=== PATIENT | male | born 1975 | race Caucasian/White ===

== ENCOUNTER 2017-05-16 20:16 | Emergency (ER) | payer OTHER ==
[~2017-05-16] VITALS: Ht 180.3 cm; Wt 101.1 kg
[~2017-05-16 20:16] MED LIST: NAPROXEN500 MG PO
[2017-05-16 20:49] LABS: HEMATOCRIT 49.6 % (38.0-50.0); MCH 28.2 PG (29.0-34.0); MCHC 33.7 G/DL (30.0-36.0); MCV 83.6 FL (86-99); MEAN PLAT.VOLUME 9.6 uM^3 (9.0-12.4); PLATELET COUNT 255 K/uL (156-360); RBC DIS.WIDTH-CV 12.3 % (11.8-14.6); RBC DIS.WIDTH-SD 37.4 % (39-53); RED BLOOD COUNT 5.93 M/uL (4.00-5.50); WHITE BLOOD COUNT 11.4 K/uL (4.1-10.2)
[2017-05-16 21:01] LABS: CHLORIDE 104 mEq/L (99-109); POTASSIUM 4.5 mEq/L (3.7-5.4); SODIUM 139 mEq/L (136-147)
[2017-05-16 21:03] LABS: GLUCOSE 134 mg/dL (70-99)
[2017-05-16 21:04] LABS: ANION GAP 15 MEQ/L (2-14)
[2017-05-16 21:07] LABS: GFR ESTIMATE (CALCULATED) > 59 mL/min/
[2017-05-16 21:08] LABS: UREA NITROGEN (BUN) 19 mg/dL (9-23)
[2017-05-16 22:53] LABS: ADD MIUA? YES; BILIRUBIN NEGATIVE; BLOOD MODERATE; COLOR YELLOW ((YELLOW)); GLUCOSE (STRIP) NEGATIVE; KETONES NEGATIVE; LEUKOCYTES NEGATIVE; NITRITE NEGATIVE; PROTEIN (STRIP) 30; SPECIFIC GRAVITY 1.024 (1.000-1.030); UROBILINOGEN 0.2 MG/DL (0.2-1.0)
[2017-05-16 22:59] LABS: BACTERIA NONE SEEN /HPF; EPITHELIAL CELLS NONE SEEN /HPF; MUCUS TRACE /LPF; RED BLOOD CELLS TNTC /HPF (0-5); WHITE BLOOD CELLS 0-5 /HPF (0-5)
[2017-05-16] MEDS ORDERED: PERCOCET 5/31 TABLET PO (23:03)
[2017-05-16] MEDS ORDERED: MOTRIN800 MG PO (23:03)
[2017-05-16] MEDS ORDERED: ZOFRAN ODT4 MG PO (23:03)
[2017-05-16] MEDS ORDERED: FLOMAX0.4 MG PO (23:03)
[2017-05-16] MEDS ORDERED: STOOL SOFTENER250 MG PO (23:04)
[2017-05-16 23:47] VITALS: BP 142/87
== END 2017-05-16 23:51 | disposition home or self-care (01) ==
LOC: EME 20:16
PROVIDERS: Nurse Practitioner Family
DX: N13.2 Hydronephrosis with renal and ureteral calculous obstruction (principal); I10 Essential (primary) hypertension; Z87.442 Personal history of urinary calculi
CPT/HCPCS: 74176; 80048; 81003; 85027; 99281; 99285; J1885; J3010; J7030